=== PATIENT | male | born 1965 | race Caucasian/White ===

== ENCOUNTER 2021-01-25 13:10 | Inpatient (IN) ==
[2021-01-25] MEDS ORDERED: SODIUM CHLORIDE 0.9% 1,000 ML IV STA ×2 (14:11→16:52)
[2021-01-25] MEDS ORDERED: LORazepam 2 MG/1 ML VIAL IV STA ×2 (14:23→15:57)
[2021-01-25] MEDS ORDERED: MORPHINE 10 MG/1 ML VIAL IV STA (14:53)
[2021-01-25] MEDS ORDERED: cefTRIAXone 2,000 MG in SODIUM CHLORIDE 0.9% 100 ML IV ONE (14:54)
[2021-01-25] MEDS ORDERED: MORPHINE 2 MG/1 ML SYRINGE ONE (14:57)
[2021-01-25] MEDS ORDERED: cefTRIAXone 1,000 MG VIAL ONE (15:00)
[2021-01-25 15:13] LABS: Basophils % 0.2 % (0.0-0.8); Hematocrit 38.6 VOL% (42.0-52.0); Hemoglobin 12.6 GM/DL (14.0-18.0); Immature Granulocytes % 0.6 %; Immature Granulocytes Absolute 0.13 #; Lymphocytes # 2.5 10*3/uL (1.4-4.0); Lymphocytes % 10.9 % (21.2-54.2); Mean Corpuscular HGB Conc 32.6 GM/DL (32-36); Mean Corpuscular Volume 90.6 FL (87-102); Mean Platelet Volume 10.7 FL (9.6-12.0); Neutrophils % 79.3 % (38.7-73.9); Platelet Count 248 T/CUMM (130-400); Red Blood Count 4.26 MC/CUMM (3.8-5.5); Red Cell Distribution Width 13.5 % (9.3-17.3); White Blood Count 22.8 T/CUMM (4-12)
[2021-01-25 15:40] LABS: Alanine Aminotransferase 32 U/L (16-61); Albumin 3.4 G/DL (3.4-5.0); Alkaline Phosphatase 89 U/L (45-117); Aspartate Amino Transferase 35 U/L (0-37); Blood Urea Nitrogen 100 MG/DL (7-18); Calcium 8.9 MG/DL (8.5-10.1); Carbon Dioxide 22 MMOL/L (21-32); Estimated Glom Filtration Rate 62 ML/MIN; Glucose 315 MG/DL (74-106); Osmolality,Calculated 308.4 MOS/KG (273-304); Potassium 5.1 MMOL/L (3.5-5.1); Sodium 133 MMOL/L (136-145); Total Protein 7.7 G/DL (6.4-8.2)
[2021-01-25 15:40] LABS: PT Patient Result 10.7 SECS (10.5-12.0); Partial Thromboplastin Time 30.8 SECS (23.9-33.8)
[2021-01-25 15:43] LABS: Salicylate < 2.8 MG/DL (2.8-20)
[2021-01-25 15:44] LABS: Acetaminophen < 2.0 UG/ML (10-30)
[2021-01-25 16:07] LABS: Bilirubin,Urine Negative (Negative); Blood, Urine Moderate mg/dL (Negative); Glucose,Urine (UA) 150 mg/dL (Negative); Hyaline Casts,Urine 1 /LPF (0-3); Ketones,Urine Negative (Negative); Mucus,Urine Occasional /LPF (Occasional); Nitrite,Urine Negative (Negative); Protein,Urine 30 MG/DL; RBC,Urine 3 /HPF (0-4); Urine Appearance CLEAR (Clear); Urine Color Yellow (Yellow); Urine Specific Gravity 1.016 (1.001-1.035); Urine Urobilinogen < 2.0 EU/DL (0.2-1.0)
[2021-01-25 16:21] LABS: Lymphocytes 13 % (20-55); Platelet Estimate Adequate; Segmented Neutrophils 73 % (50-85); Total Cells Counted 100
[2021-01-25 16:23] LABS: Barbiturates Screen,Urine Negative (Negative); Benzodiazepines Screen,Urine Positive (Negative); Cannabinoid Screen,Urine Positive (Negative); Opiate Screen,Urine Positive (Negative); Phencyclidine Screen,Urine Negative (Negative)
[2021-01-25] MEDS ORDERED: DEXTROSE 50% 25 GM/50 ML VIAL IV PRN (16:52)
[2021-01-25] MEDS ORDERED: GLUCAGON 1 MG VIAL IM PRN (16:52)
[2021-01-25] MEDS ORDERED: hydrALAZINE 20 MG/1 ML VIAL IV PRN (16:52)
[2021-01-25] MEDS ORDERED: LORazepam 2 MG/1 ML VIAL IV PRN (16:56)
[2021-01-25] MEDS ORDERED: LACTATED RINGERS 1,000 ML IV SCH (17:00)
[2021-01-25 17:12] LABS: ABG Base Excess -0.7 MMOL/L (-2.5-2.5); ABG HCO3 23.7 MMOL/L (20-26); ABG Oxygen Saturation 91.7 % (95-100); ABG PCO2 36.5 MM HG (35-48); ABG PH 7.415 (7.35-7.45); ABG TCO2 20.5 MMOL/L (23-27)
[2021-01-25] MEDS ORDERED: VANCOMYCIN INJ 1,500 MG in SODIUM CHLORIDE 0.9% 500 ML IV ONE (17:30)
[2021-01-25 17:38] LABS: Risk Ratio 3.39; Thyroid Stimulating Hormone 0.21 uIU/ml (0.358-3.74); VLDL Cholesterol 40.4 MG/DL
[2021-01-25] MEDS: PIPERACILLIN/TAZOBACTAM 3,375 MG in SODIUM CHLORIDE 0.9% 100 ML IV SCH (18:00)
[2021-01-25] MEDS ORDERED: AZITHROMYCIN INJ 500 MG in SODIUM CHLORIDE 0.9% 250 ML IV SCH (18:30)
[2021-01-25] MEDS ORDERED: VANCOMYCIN INJ 2,500 MG in SODIUM CHLORIDE 0.9% 500 ML IV ONE (22:00)
[2021-01-25] MEDS ORDERED: VANCOMYCIN INJ 1,500 MG in SODIUM CHLORIDE 0.9% 500 ML IV SCH (22:00)
[2021-01-25] MEDS: ENOXAPARIN 40 MG/0.4 ML SYRINGE SUBCUT SCH (22:19)
[2021-01-25] MEDS: INSULIN REGULAR 100 UNIT/ML SUBCUT SCH (22:19)
[2021-01-26] MEDS ORDERED: ZIPRASIDONE 20 MG/1 ML VIAL IM ONE (00:01)
[2021-01-26] MEDS: CLINDAMYCIN INJ 600 MG/50 ML PREMIX IV SCH ×2 (00:33→08:30)
[2021-01-26] MEDS: SODIUM CHLORIDE 0.45% 1,000 ML IV SCH ×3 (00:33→17:57)
[2021-01-26] MEDS ORDERED: VANCOMYCIN INJ 2,500 MG in SODIUM CHLORIDE 0.9% 500 ML IV ONE (01:00)
[2021-01-26] MEDS: INSULIN REGULAR 100 UNIT/ML SUBCUT SCH ×4 (01:08→18:54)
[2021-01-26] MEDS: MORPHINE 2 MG/1 ML SYRINGE IV PRN ×4 (04:02→21:30)
[2021-01-26] MEDS ORDERED: HALOPERIDOL 5 MG/ML AMP IM ONE ×2 (05:29→06:33)
[2021-01-26] MEDS ORDERED: diphenhydrAMINE 50 MG/1 ML VIAL IM ONE (06:31)
[2021-01-26] MEDS ORDERED: LORazepam 2 MG/1 ML VIAL IM ONE (06:33)
[2021-01-26] MEDS ORDERED: LORazepam 2 MG/1 ML VIAL ONE ×3 (06:39→15:20)
[2021-01-26] MEDS: PIPERACILLIN/TAZOBACTAM 3,375 MG in SODIUM CHLORIDE 0.9% 100 ML IV SCH ×2 (08:31→12:21)
[2021-01-26] MEDS: ZIPRASIDONE 20 MG/1 ML VIAL IM PRN ×2 (10:46→17:56)
[2021-01-26] MEDS: HALOPERIDOL 5 MG/ML AMP IM PRN (13:07)
[2021-01-26] MEDS: LORazepam 2 MG/1 ML VIAL IV PRN ×2 (15:36→21:30)
[2021-01-26 16:16] LABS: Free T4 (Free Thyroxine) 1.5 NG/DL (0.76-1.46)
[2021-01-26] MEDS: ENOXAPARIN 40 MG/0.4 ML SYRINGE SUBCUT SCH (17:59)
[2021-01-26] MEDS: VANCOMYCIN INJ 1,500 MG in SODIUM CHLORIDE 0.9% 500 ML IV SCH (17:59)
[2021-01-27] MEDS: ZIPRASIDONE 20 MG/1 ML VIAL IM PRN (00:20)
[2021-01-27] MEDS: diphenhydrAMINE 50 MG/1 ML VIAL IM PRN ×2 (00:21→23:02)
[2021-01-27] MEDS: PIPERACILLIN/TAZOBACTAM 3,375 MG in SODIUM CHLORIDE 0.9% 100 ML IV SCH ×4 (00:21→18:23)
[2021-01-27] MEDS: INSULIN REGULAR 100 UNIT/ML SUBCUT SCH ×4 (00:21→20:33)
[2021-01-27] MEDS ORDERED: OLANZapine 10 MG VIAL IM ONE (02:24)
[2021-01-27] MEDS: SODIUM CHLORIDE 0.45% 1,000 ML IV SCH ×3 (03:03→18:22)
[2021-01-27] MEDS: HALOPERIDOL 5 MG/ML AMP IM PRN (05:36)
[2021-01-27] MEDS: VANCOMYCIN INJ 1,500 MG in SODIUM CHLORIDE 0.9% 500 ML IV SCH ×2 (05:37→20:30)
[2021-01-27] MEDS ORDERED: HALOPERIDOL 5 MG/ML AMP IM PRN (09:04)
[2021-01-27 09:55] LABS: Basophils # 0.1 10*3/uL (0.0-0.2); Basophils % 0.3 % (0.0-0.8); Hematocrit 39.4 VOL% (42.0-52.0); Hemoglobin 13.5 GM/DL (14.0-18.0); Immature Granulocytes % 1.5 %; Immature Granulocytes Absolute 0.39 #; Lymphocytes # 2.7 10*3/uL (1.4-4.0); Lymphocytes % 10.7 % (21.2-54.2); Mean Corpuscular HGB Conc 34.3 GM/DL (32-36); Mean Corpuscular Volume 88.1 FL (87-102); Mean Platelet Volume 10.7 FL (9.6-12.0); Monocytes % 7.9 % (1.7-12.7); Neutrophils % 79.6 % (38.7-73.9); Platelet Count 299 T/CUMM (130-400); Red Blood Count 4.47 MC/CUMM (3.8-5.5); Red Cell Distribution Width 13.2 % (9.3-17.3); White Blood Count 25.2 T/CUMM (4-12)
[2021-01-27] MEDS ORDERED: ZIPRASIDONE 20 MG/1 ML VIAL IM SCH (10:00)
[2021-01-27 10:07] LABS: Lymphocytes 10 % (20-55); Segmented Neutrophils 82 % (50-85); Total Cells Counted 100
[2021-01-27 10:08] LABS: Calcium 9.8 MG/DL (8.5-10.1); Osmolality,Calculated 299.4 MOS/KG (273-304); Platelet Estimate Normal; Polychromasia Slight; Potassium 3.5 MMOL/L (3.5-5.1); Target Cells Few
[2021-01-27 10:09] LABS: Atypical Lymphocytes Few
[2021-01-27] MEDS ORDERED: MORPHINE ER 30 MG TABLET PO SCH (13:00)
[2021-01-27] MEDS ORDERED: LORazepam 2 MG/1 ML VIAL IV SCH (14:00)
[2021-01-27] MEDS ORDERED: MORPHINE 2 MG/1 ML SYRINGE IV SCH (14:00)
[2021-01-27] MEDS: TAMSULOSIN 0.4 MG CAPSULE PO SCH (14:26)
[2021-01-27] MEDS ORDERED: ALPRAZolam 0.5 MG TABLET PO SCH (15:00)
[2021-01-27] MEDS: ENOXAPARIN 40 MG/0.4 ML SYRINGE SUBCUT SCH (16:14)
[2021-01-27] MEDS: MORPHINE ER 30 MG TABLET PO SCH (18:20)
[2021-01-27] MEDS: ALPRAZolam 0.5 MG TABLET PO SCH ×2 (18:20→21:48)
[2021-01-27] MEDS ORDERED: QUEtiapine 100 MG TABLET PO ONE (18:30)
[2021-01-27 18:35] LABS: Bacteria,Urine Occasional /HPF (Few); Bilirubin,Urine Negative (Negative); Blood, Urine Moderate mg/dL (Negative); Glucose,Urine (UA) >=500 mg/dL (Negative); Ketones,Urine 20 mg/dL (Negative); Mucus,Urine Occasional /LPF (Occasional); Nitrite,Urine Negative (Negative); Protein,Urine 100 MG/DL; RBC,Urine 4 /HPF (0-4); Squamous Epithelial Cell,Urine Occasional /HPF (0-10); Urine Appearance CLEAR (Clear); Urine Color Amber (Yellow); Urine Specific Gravity 1.027 (1.001-1.035); Urine Urobilinogen < 2.0 EU/DL (0.2-1.0)
[2021-01-28] MEDS: MORPHINE 2 MG/1 ML SYRINGE IV PRN ×4 (00:22→15:23)
[2021-01-28] MEDS: PIPERACILLIN/TAZOBACTAM 3,375 MG in SODIUM CHLORIDE 0.9% 100 ML IV SCH ×3 (02:50→18:05)
[2021-01-28 05:38] LABS: Basophils # 0.1 10*3/uL (0.0-0.2); Basophils % 0.3 % (0.0-0.8); Eosinophils % 0.1 % (0.00-10.9); Hematocrit 40.7 VOL% (42.0-52.0); Hemoglobin 13.5 GM/DL (14.0-18.0); Immature Granulocytes % 1.1 %; Immature Granulocytes Absolute 0.28 #; Lymphocytes # 3.1 10*3/uL (1.4-4.0); Lymphocytes % 11.9 % (21.2-54.2); Mean Corpuscular HGB Conc 33.2 GM/DL (32-36); Mean Corpuscular Volume 90.8 FL (87-102); Mean Platelet Volume 10.9 FL (9.6-12.0); Monocytes % 9.3 % (1.7-12.7); NRBC # 0.02 10*3/uL; Neutrophils % 77.3 % (38.7-73.9); Platelet Count 293 T/CUMM (130-400); Red Blood Count 4.48 MC/CUMM (3.8-5.5); Red Cell Distribution Width 13.7 % (9.3-17.3); White Blood Count 26.4 T/CUMM (4-12)
[2021-01-28] MEDS: SODIUM CHLORIDE 0.45% 1,000 ML IV SCH ×2 (06:00→21:22)
[2021-01-28 06:04] LABS: Hypochromasia Slight; Lymphocytes 10 % (20-55); Microcytosis Slight; Platelet Estimate Adequate; Segmented Neutrophils 85 % (50-85); Total Cells Counted 100
[2021-01-28] MEDS: ONDANSETRON 4 MG/2 ML VIAL IV PRN ×2 (06:15→14:28)
[2021-01-28] MEDS: INSULIN REGULAR 100 UNIT/ML SUBCUT SCH ×5 (06:20→23:50)
[2021-01-28 06:27] LABS: Calcium 9.4 MG/DL (8.5-10.1); Osmolality,Calculated 302.1 MOS/KG (273-304); Potassium 3.5 MMOL/L (3.5-5.1)
[2021-01-28] MEDS: MORPHINE ER 30 MG TABLET PO SCH ×2 (06:45→17:20)
[2021-01-28] MEDS: ALPRAZolam 0.5 MG TABLET PO SCH ×3 (06:46→21:22)
[2021-01-28] MEDS: VANCOMYCIN INJ 1,500 MG in SODIUM CHLORIDE 0.9% 500 ML IV SCH (08:31)
[2021-01-28] MEDS: TAMSULOSIN 0.4 MG CAPSULE PO SCH (08:37)
[2021-01-28] MEDS ORDERED: LORazepam 2 MG/1 ML VIAL IV ONE (12:39)
[2021-01-28] MEDS ORDERED: DEXTROSE 50% 25 GM/50 ML VIAL IV PRN (15:01)
[2021-01-28] MEDS ORDERED: GLUCAGON 1 MG VIAL IM PRN (15:01)
[2021-01-28] MEDS: ENOXAPARIN 40 MG/0.4 ML SYRINGE SUBCUT SCH (16:51)
[2021-01-28] MEDS: QUEtiapine 100 MG TABLET PO SCH (21:22)
[2021-01-28] MEDS: MENTHOL/ZINC OXIDE OINT 71 GM JAR TOP SCH (22:17)
[2021-01-29] MEDS: PIPERACILLIN/TAZOBACTAM 3,375 MG in SODIUM CHLORIDE 0.9% 100 ML IV SCH ×3 (03:20→20:33)
[2021-01-29] MEDS: ONDANSETRON 4 MG/2 ML VIAL IV PRN (03:35)
[2021-01-29 04:35] LABS: Basophils # 0.1 10*3/uL (0.0-0.2); Basophils % 0.6 % (0.0-0.8); Eosinophils # 0.2 10*3/uL (0.0-0.87); Eosinophils % 0.9 % (0.00-10.9); Hematocrit 38.7 VOL% (42.0-52.0); Hemoglobin 12.6 GM/DL (14.0-18.0); Immature Granulocytes % 1.8 %; Immature Granulocytes Absolute 0.38 #; Lymphocytes # 3.6 10*3/uL (1.4-4.0); Lymphocytes % 17.7 % (21.2-54.2); Mean Corpuscular HGB Conc 32.6 GM/DL (32-36); Mean Corpuscular Volume 91.3 FL (87-102); Monocytes % 9.1 % (1.7-12.7); NRBC # 0.03 10*3/uL; Neutrophils % 69.9 % (38.7-73.9); Platelet Count 249 T/CUMM (130-400); Red Blood Count 4.24 MC/CUMM (3.8-5.5); Red Cell Distribution Width 13.9 % (9.3-17.3); White Blood Count 20.6 T/CUMM (4-12)
[2021-01-29 05:04] LABS: Eosinophils 2 % (0-10); Hypochromasia Slight; Lymphocytes 16 % (20-55); Microcytosis Slight; Platelet Estimate Adequate; Segmented Neutrophils 74 % (50-85); Total Cells Counted 100
[2021-01-29 05:18] LABS: Albumin 2.5 G/DL (3.4-5.0); Bilirubin,Total 1.1 MG/DL (0.20-1.00); Calcium 8.5 MG/DL (8.5-10.1); Osmolality,Calculated 283.7 MOS/KG (273-304); Potassium 3.8 MMOL/L (3.5-5.1); Total Protein 6.2 G/DL (6.4-8.2)
[2021-01-29] MEDS: ALPRAZolam 0.5 MG TABLET PO SCH ×3 (05:37→21:57)
[2021-01-29] MEDS: MORPHINE ER 30 MG TABLET PO SCH ×2 (05:37→17:34)
[2021-01-29] MEDS: INSULIN REGULAR 100 UNIT/ML SUBCUT SCH ×4 (06:08→23:39)
[2021-01-29] MEDS ORDERED: MAGNESIUM SULF RIDER 4 GM/100 ML PREMIX IV PRN (07:36)
[2021-01-29] MEDS: TAMSULOSIN 0.4 MG CAPSULE PO SCH (09:40)
[2021-01-29] MEDS: MAGNESIUM SULF RIDER 2 GM/50 ML PREMIX IV PRN ×2 (09:40→11:40)
[2021-01-29] MEDS: MENTHOL/ZINC OXIDE OINT 71 GM JAR TOP SCH ×2 (09:49→20:33)
[2021-01-29] MEDS: SODIUM CHLORIDE 0.45% 1,000 ML IV SCH ×2 (10:39→20:32)
[2021-01-29] MEDS: NICOTINE 21 MG/24 HR PATCH TRANSDERM SCH (14:35)
[2021-01-29] MEDS: ENOXAPARIN 40 MG/0.4 ML SYRINGE SUBCUT SCH (17:35)
[2021-01-29] MEDS: QUEtiapine 100 MG TABLET PO SCH (20:33)
[2021-01-30] MEDS: SODIUM CHLORIDE 0.45% 1,000 ML IV SCH ×2 (01:54→13:49)
[2021-01-30] MEDS: PIPERACILLIN/TAZOBACTAM 3,375 MG in SODIUM CHLORIDE 0.9% 100 ML IV SCH ×2 (02:26→13:48)
[2021-01-30] MEDS: ALPRAZolam 0.5 MG TABLET PO SCH (05:17)
[2021-01-30] MEDS: MORPHINE ER 30 MG TABLET PO SCH (05:17)
[2021-01-30 05:37] LABS: Basophils # 0.1 10*3/uL (0.0-0.2); Basophils % 0.4 % (0.0-0.8); Eosinophils # 0.5 10*3/uL (0.0-0.87); Eosinophils % 4.3 % (0.00-10.9); Hematocrit 38.2 VOL% (42.0-52.0); Hemoglobin 12.5 GM/DL (14.0-18.0); Immature Granulocytes % 1.5 %; Immature Granulocytes Absolute 0.19 #; Lymphocytes % 24.1 % (21.2-54.2); Mean Corpuscular HGB Conc 32.7 GM/DL (32-36); Mean Corpuscular Volume 91.2 FL (87-102); Mean Platelet Volume 11.3 FL (9.6-12.0); Neutrophils % 60.7 % (38.7-73.9); Platelet Count 255 T/CUMM (130-400); Red Blood Count 4.19 MC/CUMM (3.8-5.5); Red Cell Distribution Width 13.7 % (9.3-17.3); White Blood Count 12.5 T/CUMM (4-12)
[2021-01-30] MEDS: INSULIN REGULAR 100 UNIT/ML SUBCUT SCH ×2 (05:49→13:49)
[2021-01-30 05:59] LABS: Hypochromasia 1+; Microcytosis 1+
[2021-01-30 06:00] LABS: Platelet Estimate Normal
[2021-01-30 06:17] LABS: Albumin 2.2 G/DL (3.4-5.0); Bilirubin,Total 1.1 MG/DL (0.20-1.00); Calcium 8.4 MG/DL (8.5-10.1); Osmolality,Calculated 283.4 MOS/KG (273-304); Potassium 4.1 MMOL/L (3.5-5.1); Total Protein 5.9 G/DL (6.4-8.2)
[2021-01-30 07:47] VITALS: BP 145/84
[2021-01-30] MEDS: TAMSULOSIN 0.4 MG CAPSULE PO SCH (08:53)
[2021-01-30] MEDS: NICOTINE 21 MG/24 HR PATCH TRANSDERM SCH (08:55)
[2021-01-30] MEDS: MENTHOL/ZINC OXIDE OINT 71 GM JAR TOP SCH (08:58)
[2021-01-30] MEDS ORDERED: GABAPENTIN 400 MG CAPSULE PO SCH (15:00)
== END 2021-01-30 13:23 | disposition home or self-care (01) | DRG 871 ==
LOC: EDUNIT# → EDBD → N.ED 13:10 → SUATTDRO 16:53 → N.EDINP 16:53 → N.5E 20:36 → N.ICU 01-27 15:03 → N.5E 01-29 16:47
PROVIDERS: ADMIT Internal Medicine; ATTEND Internal Medicine